=== PATIENT | male | born 1980 | race Caucasian/White ===

== ENCOUNTER → 2021-09-01 | Outpatient (CLI) | payer OTHER ==
--- NOTE | 2021-09-01 09:35 | Diagnostic Imaging Report ---
PROCEDURE: US Scrotum. TECHNIQUE: Multiple real-time grayscale images were obtained over the scrotum in various projections bilaterally. INDICATION: Left testicular pain COMPARISON: None. FINDINGS: The testicles are normal in size, shape and echogenicity. Right testis measures 4.5 x 2.3 x 3.2 cm. Left testis measures 4 x 2 x 2.8 cm. There is normal color flow Doppler signal of both testicles. No focal testicular mass is seen on either side. The right and left epididymides are unremarkable. There is no evidence of epididymitis. No large hydrocele is seen. IMPRESSION: Normal testicular sonogram. Dictated by: Dictated on workstation # [id number]
== END ==
LOC: RAD 09:00
PROVIDERS: ATTEND Nurse Practitioner Family
DX: N50.812 Left testicular pain (principal)
CPT/HCPCS: 76870